=== PATIENT | male | born 1985 | race Caucasian/White ===

== ENCOUNTER 2020-07-28 14:12 | Emergency (ER) | payer OTHER ==
[~2020-07-28] VITALS: Ht 190.5 cm; Wt 81.7 kg
[2020-07-28] MEDS ORDERED: NAPR500 PO (16:10)
== END 2020-07-28 17:06 | disposition home or self-care (01) ==
LOC: ER 14:12
DX: S02.40FA Zygomatic fracture, left side, initial encounter for closed fracture (principal); W51.XXXA Accidental striking against or bumped into by another person, initial encounter
CPT/HCPCS: 70486; 99283-25